=== PATIENT | male | born 1985 | race Native Hawaiian/Other Pacific Islander ===

== ENCOUNTER 2016-08-24 00:53 | Emergency (ER) | payer OTHER ==
[2016-08-24 01:43] VITALS: BP 132/75; PULSE 72; RESP 16; TEMP 98.7; O2SAT 98
--- NOTE | 2016-08-24 02:14 | ED PDOC ---
HPI: Abdomen Time Seen by Provider: 08/24/16 01:38 Chief Complaint (Nursing): Anxiety Chief Complaint (Provider): Abdomnial Pain History Per: Patient History/Exam Limitations: no limitations Onset/Duration Of Symptoms: Sudden Onset Current Symptoms Are (Timing): Still Present Severity: Mild Associated Symptoms: denies: Fever Additional Complaint(s): Matty Tierney is a 31 y/o male, with a past medical history of Panic Disorder (no panic attack in the past ten years), presenting to the ER on 2016 with complaints of acute abdominal pain, diaphoresis, and nausea x1 hour. Patient reports being woken up from a near-sleep state due to his symptom presentation. States his pain has resolved on its own and has been gradually feeling better prior to arrival. Patient denies any fever, cough, SOB, or CP. However, he says he felt palpitations for about ten minutes during the initial episode, which also resolved on its own. Of note, patient believes symptoms may have originated from his consumption of heavy [place] noodles earlier this evening. Past Medical History Reviewed: Historical Data, Nursing Documentation, Vital Signs Vital Signs: Last Vital Signs Temp 98.7 F 08/24/16 01:31 Pulse 72 08/24/16 01:31 Resp 16 08/24/16 01:31 BP 132/75 08/24/16 01:31 Pulse Ox 98 08/24/16 04:56 - Medical History PMH: Anxiety - Surgical History Surgical History: No Surg Hx - Family History Family History: States: Unknown Family Hx - Home Medications Home Medications: Ambulatory Orders Medication Instructions Recorded Ondansetron ODT [Zofran ODT] 4 mg PO Q6 PRN #10 odt 08/24/16 - Allergies Allergies/Adverse Reactions: Allergies Allergy/AdvReac Type Severity Reaction Status Date / Time No Known Allergies Allergy Verified 08/24/16 01:33 Review of Systems ROS Statement: Except As Marked, All Systems Reviewed And Found Negative Constitutional: Negative for: Fever Cardiovascular: Positive for: Palpitations. Negative for: Chest Pain Respiratory: Negative for: Cough, Shortness of Breath Gastrointestinal: Positive for: Nausea, Abdominal Pain Skin: Positive for: Other ((+) diaphoresis ) Physical Exam - Reviewed Nursing Documentation Reviewed: Yes Vital Signs Reviewed: Yes - Physical Exam Appears: Positive for: Non-toxic, No Acute Distress Head Exam: Positive for: ATRAUMATIC, NORMOCEPHALIC Skin: Positive for: Diaphoresis Eye Exam: Positive for: Normal appearance, EOMI, PERRL ENT: Positive for: Normal ENT Inspection, Pharynx Is (clear), TM Is/Are (normal ). Negative for: Pharyngeal Erythema, Tonsillar Exudate, Tonsillar Swelling Neck: Positive for: Normal, Painless ROM, Supple Cardiovascular/Chest: Positive for: Regular Rate, Rhythm. Negative for: Murmur Respiratory: Positive for: Normal Breath Sounds. Negative for: Respiratory Distress Gastrointestinal/Abdominal: Positive for: Normal Exam, Soft. Negative for: Tenderness, Mass, Guarding, Rebound Extremity: Positive for: Normal ROM. Negative for: Deformity Neurologic/Psych: Positive for: Alert, Oriented (x3), Gait (normal ). Negative for: Motor/Sensory Deficits - Laboratory Results Result Diagrams: 08/24/16 02:54 08/24/16 02:54 - ECG O2 Sat by Pulse Oximetry: 98 (RA) Pulse Ox Interpretation: Normal Medical Decision Making Medical Decision Makin:38 Initial Impression- 31 y/o male with acute abdominal pain, nausea, and diaphoresis (asymptomatic at presents). Initial Plan- * EKG * Alcohol Serum * CMP * Drug Screen * Lipase * Urine dip * CBC w/ differential * Urinalysis * Re-evaluate 04:15 Pt was re-evaluated. Labs reviewed with no clinical abnormalities. Pt continued to remain asymptomatic for his duration of stay in the ED. Pt will be discharged routinely with rx of Zofran. Provider discussed possible gallstone disease that may have provoked acute abdominal pain and nausea. Condition is stable for discharge. Advised to return if symptoms persist or worsen. Clinical impression- acute vomiting Documented by Mateusz Torres, acting as a scribe for Chu Barnes MD. All medical record entries made by the Scribe were at my direction and personally dictated by me. I have reviewed the chart and agree that the record accurately reflects my personal performance of the history, physical exam, medical decision making, and the department course for this patient. I have also personally directed, reviewed, and agree with the discharge instructions and disposition. Disposition - Clinical Impression Clinical Impression: Nausea, Palpitation - Disposition Disposition Time: 04:15 Condition: STABLE Prescriptions: Ondansetron ODT [Zofran ODT] 4 mg PO Q6 PRN #10 odt PRN Reason: Nausea/Vomiting Instructions: Palpitations (ED), Acute Nausea and Vomiting (ED)
[2016-08-24 02:58] LABS: BASO # 0.1 K/uL (0.0-0.2); EOS % 0.4 % (0.0-4.0); HEMATOCRIT 44.1 % (35.0-51.0); LYMPH # 1.6 K/uL (1.0-4.3); LYMPH % 14.4 % (20.0-40.0); MEAN CELL VOLUME 83.7 fl (80.0-94.0); MEAN CORPUSCULAR HEMOGLOBIN 27.8 pg (27.0-31.0); MEAN CORPUSCULAR HGB CONC 33.2 g/dL (33.0-37.0); MONO # 0.7 K/uL (0.0-0.8); MONO % 5.9 % (0.0-10.0); NEUT # 8.7 K/uL (1.8-7.0); NEUT % 78.3 % (50.0-75.0); NRBC % 0.1 % (0.0-0.0); RED CELL DISTRIBUTION WIDTH 13.6 % (11.5-14.5); WHITE BLOOD COUNT 11.1 K/uL (4.8-10.8)
[2016-08-24 03:05] LABS: RBC URINE 1 /hpf (0-3); URINE BACTERIA RARE (<OCC); URINE BILIRUBIN NEGATIVE (NEGATIVE); URINE BLOOD NEGATIVE (NEGATIVE); URINE COLOR YELLOW (YELLOW); URINE GLUCOSE (UA) NEG (Normal); URINE KETONE TRACE mg/dL (NEGATIVE); URINE LEUKOCYTE ESTERASE NEG Leu/uL (Negative); URINE PROTEIN 30 mg/dL (NEGATIVE); URINE UROBILINOGEN 0.2-1.0 mg/dL (0.2-1.0); WBC URINE 3 /hpf (0-5)
[2016-08-24 03:11] LABS: ALB/GLOB RATIO 1.2 (1.0-2.1); ALCOHOL SERUM < 10 mg/dl (0-10); ALKALINE PHOSPHATASE 77 U/L (38-126); ALT/SGPT 29 U/L (21-72); AST/SGOT 19 U/L (17-59); BILIRUBIN,TOTAL 0.4 mg/dl (0.2-1.3); BLOOD UREA NITROGEN 15 mg/dl (9-20); CARBON DIOXIDE 24 mmol/L (22-30); CHLORIDE 108 mmol/L (98-107); GFR AFRICAN-AMERICAN > 60; GLUCOSE,RANDOM 106 mg/dL (75-110); LIPASE 85 U/L (23-300); POTASSIUM 3.8 MMOL/L (3.6-5.0); SODIUM 146 mmol/l (132-148); TOTAL PROTEIN 7.6 G/DL (6.3-8.2)
--- NOTE | 2016-08-24 08:15 | CARD ---
APPROVED REPORT EKG Measurement Heart [id number] <Conclusion> Sinus bradycardia with marked sinus arrhythmia Otherwise normal ECG
== END 2016-08-24 03:23 | disposition home or self-care (01) ==
LOC: H.ER 00:53
DX: R00.2 Palpitations (principal); F41.9 Anxiety disorder, unspecified; R10.9 Unspecified abdominal pain